=== PATIENT | female | born 2000 | race African-American/Black ===

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

== ENCOUNTER 2021-08-08 12:05 | Emergency (ER) | payer MEDICAID ==
[~2021-08-08] VITALS: Ht 160 cm; Wt 54.4 kg
[2021-08-08 14:04] LABS: Urine Bacteria FEW /hpf (None Seen); Urine Blood 3+ /uL (Negative); Urine Specific Gravity 1.004 (1.001-1.035); Urine WBC 3 /hpf (0 - 5)
[2021-08-08 14:09] LABS: Eosinophils # (auto) 0 10 ^3/uL (0-0.8); Hematocrit 36.7 % (36.0-46.0); Hemoglobin 12.1 g/dL (12.2-16.2); Lymphocytes # (auto) 1.2 10 ^3/uL (0.4-5.4); Nucleated Red Blood Cells % 0.2 %; White Blood Cell 3.3 10^3/uL (4.4-10.8)
[2021-08-08 14:11] LABS: Basophils # (auto) 0.1 10 ^3/uL (0-0.2); Lymphocytes % (auto) 35.6 % (10.0-50.0); Mean Corpuscular Hemoglobin 26.9 pg (28.0-32.0); Mean Corpuscular Hgb Conc. 32.9 g/dL (32.0-36.0); Mean Corpuscular Volume 81.8 fL (80.0-100.0); Monocytes # (auto) 0.3 10 ^3/uL (0-1.3); Monocytes % (auto) 7.9 % (0.0-12.0); Neutrophils # (auto) 1.7 10 ^3/uL (1.6-8.6); Neutrophils % (auto) 52.5 % (37.0-80.0); Red Blood Cells 4.49 10^6/uL (4.0-5.20); Red Cell Distribution Width 18.2 % (11.8-14.3)
[2021-08-08 14:23] LABS: Albumin 3.9 g/dL (3.4-5.0); Calcium 9.1 mg/dL (8.5-10.1); Magnesium 2.1 mg/dL (1.6-2.6); Potassium 3.6 mmol/L (3.5-5.1)
[2021-08-08 14:25] LABS: Bilirubin, Total 1.4 mg/dL (0.2-1.0); Total Protein 8.6 g/dL (6.4-8.2)
[2021-08-08 14:44] LABS: Beta HCG, Quantitative < 1 mlU/mL (1-3); Thyroid Stimulating Hormone 0.36 uIU/mL (0.358-3.74)
[2021-08-08] MEDS ORDERED: NITR-87 PO (15:00)
[2021-08-08 15:06] VITALS: BP 101/77
== END 2021-08-08 15:21 | disposition home or self-care (01) ==
LOC: ER 12:05
DX: R00.2 Palpitations (principal); R07.89 Other chest pain
CPT/HCPCS: 36415; 80053; 81001; 83735; 84443; 84484; 84702; 85025; 93005

== ENCOUNTER 2022-02-20 14:12 | Emergency (ER) | payer MEDICAID ==
[~2022-02-20] VITALS: Ht 162.6 cm; Wt 53.0 kg
[~2022-02-20 14:12] MED LIST changes: +NITR-87 PO
[2022-02-20 14:27] VITALS: BP 111/75
[2022-02-20] MEDS ORDERED: ALBU108A5 IN (17:37)
[2022-02-20] MEDS ORDERED: AZIT250T8 PO (17:37)
[2022-02-20] MEDS ORDERED: METH4PAK PO (17:37)
== END 2022-02-20 17:44 | disposition home or self-care (01) ==
LOC: ER 14:12
DX: J03.90 Acute tonsillitis, unspecified (principal); J45.909 Unspecified asthma, uncomplicated; R07.89 Other chest pain
CPT/HCPCS: 71045; 81025